=== PATIENT | male | born 1970 | race Caucasian/White ===

== ENCOUNTER 2022-04-12 16:34 | Emergency (ER) | payer SELFPAY ==
[2022-04-12] VITALS (97 sets, daily range): BP systolic 90–113; BP diastolic 58–73; PULSE 75–158; RESP 12–29; TEMP 36.2; O2SAT 99–100
--- NOTE | 2022-04-12 16:30 | RT.EKG_ITS ---
APPROVED REPORT Exam: Resting ECG Reason for Exam: elevated heart rate Patient Location: E HR:109 bpm ECG Measurements Heart Rate 109 AXIS CO 148 P 68 QRSd 79 QRS -23 QT 312 T 112 QTc 420 Conclusion Sinus tachycardia...rate> 99 Nonspecific repol abnormality, lateral leads...ST dep, T neg, I aVL V5 V6 sinus tachycardia, left axis, normal intervals, ST depressions and t wave inversions I aVL, V6, with st depressions in V4 V5 as wellwells
--- NOTE | 2022-04-12 17:00 | DI.CT_ITS ---
Exam(s) CT ABDOMEN PELVIS WO EXAM: CT ABDOMEN PELVIS WO CLINICAL HISTORY: coffee ground emesis and melena. TECHNIQUE: Imaging Protocol: Axial computed tomography images with coronal and sagittal reformatted images were created and reviewed. COMPARISON: No exams were available for comparison FINDINGS: ABDOMEN: Lung Bases: Normal where visualized. Liver: Normal density. No measurable mass. Gallbladder and biliary tract: No radiodense calculus or biliary ductal dilation. Pancreas: Normal density, no abnormal calcifications or inflammatory process. Spleen: Normal. Kidneys: Normal size, contour and axis.No radiodense stones or obstructive uropathy. No masses seen. Adrenal glands: No mass is seen. Lymph nodes: Within normal limits. Abdominal Aorta: Abdominal portion non-dilated. Atherosclerosis. PELVIS: Bladder:There is diffuse thickening of the wall of the urinary bladder. This may be due to underdist ention. Cystitis cannot be excluded. Bowel: No evidence of obstruction. The colon is not well distended limiting evaluation. No pericolo yesenia inflammatory changes are seen at this time. Appendix is unremarkable. Peritoneal cavity: No ascites, collection or mesenteric inflammatory response. No free air. Reproductive organs: Prostate gland is enlarged. Bones: Within normal limits. Soft Tissues: Within normal limits. IMPRESSION: 1. The colon is not well distended. The wall appears mildly thickened but this may be due to underdi stention. Colitis cannot be entirely excluded however, no pericolonic inflammatory changes are seen. 2. Thickening of the wall of the urinary bladder. The bladder is underdistention which may cause thi s appearance. Cystitis or chronic bladder outlet obstruction cannot be entirely excluded. Please co rrelate clinically. RADIATION DOSE DELIVERED: 735.62mGy.cm Total DLP DATA REPOSITORY: All CT scans at this facility are submitted to the National Radiology Data Registry (NRDR) Dose Index Registry (DIR) with the [employer] ([employer]). RADIATION OPTIMIZATION: All CT scans at this facility use at least one of these dose optimization te chniques: automated exposure control; mA and/or kV adjustment per patient size (includes targeted exa ms where dose is matched to clinical indication); or iterative reconstruction.
--- NOTE | 2022-04-12 17:14 | W.ED.GENAD ---
Discharge Plan Disposition Patient Disposition: [facility] Condition: Serious Discharge Details Chief Complaint: Nausea/Vomit/Diar Clinical Impression: Acute upper gastrointestinal bleeding, NERIS (acute kidney injury), Alcohol withdrawal Primary Care Provider: None,None ED Provider: Carlos Trujillo Home Meds and New Rx's Prescriptions: No Action No Known Home Meds Medical Decision Making 52-year-old male history of alcohol abuse, approximately 1 gallon of vodka per week increased his drinking recently, has been drinking heavily for 5 years, presents with nausea vomiting and diarrhea, dark emesis and dark stool, patient is tachycardic, appears dry and pale with conjunctival pallor, abdomen soft nontender nondistended no active vomiting currently however feels nauseous, last drink 2 days ago, high clinical suspicion for upper GI bleed must consider gastritis versus variceal bleed also likely component of alcohol withdrawal. Will proceed with fluid resuscitation, Protonix, octreotide, ceftriaxone empirically, Zofran, Ativan, basic labs type and screen stat bedside x-ray to assess for air under the diaphragm or mediastinal abnormalities however esophageal rupture or perforation less likely at this time, patient will likely need transfer for urgent GI evaluation with upper endoscopy; close reassessment of vital signs and mental status. Of note patient also has sinus tachycardia as well as T wave inversions and ST depressions concerning for lateral ischemia consider demand versus ACS 18: 36 patient resting more comfortably, heart rate has decreased to the 80s, color improving, no active vomiting however he did have 1 dark bowel movement at bedside, given high likelihood of upper GI bleed related to varices versus severe alcohol induced gastritis patient will benefit from admission to a center with interventional upper endoscopy capabilities. For this reason [facility] has been contacted to consult GI service for transfer. Continue with fluids benzos antiemetics. 20: 27 patient resting comfortably no emesis and no further melanotic stool at this time, symptoms of withdrawal greatly improved. Patient has been accepted to [facility] for MICU admission sifting physician Dr. Kenney. Patient to be evaluated by GI service at [facility].. Was able to contact patient's fianc? who called earlier her name is Ellie [phone] HPI General Date/Time Provider Initiated Documentation: 04/12/22 16:39. HPI Narrative: 52-year-old male history of alcohol abuse presents with dark emesis and dark black stool over the past day multiple episodes of vomiting and diarrhea, feels fatigued and dehydrated, endorses drinking approximately 1 gallon of vodka per week has increased his drinking over the past several days to weeks, has been drinking heavily for approximately 5 years, last drink was approximately 2 days ago. Related Data Home Medications Medication Instructions Recorded Confirmed Unknown [No Known Home Meds] 01/23/16 01/23/16 Allergies Allergy/AdvReac Type Severity Reaction Status Date / Time No Known Allergies Allergy Unverified 01/23/16 23:27 General Stated Complaint: Nausea/Vomit/Diar ALEXIS: 3 Review of Systems Narrative: Review of Systems Constitutional: Fatigue Eyes: negative ENT: negative Cardiovascular: Tachycardia Respiratory: negative Gastrointestinal: Nausea, vomiting, coffee-ground emesis, melena : negative Musculoskeletal: negative Skin: negative Neurologic: negative Psych: negative PFSH All Active Problems (Updated 04/12/22 @ 20:31 by Carlos Trujillo MD) Acute upper gastrointestinal bleeding (Acute) NERIS (acute kidney injury) (Acute) Alcohol withdrawal (Acute) Social History Smoking/Tobacco Use Status: Current every day Tobacco Type: cigarettes Smoking risk assessment performed?: Yes Alcohol Intake: current Alcohol Intake frequency: 3 or more drinks per day Alcohol type: hard liquor Drug use: Daily Substance use type: marijuana and painkillers Do you feel safe at home: Yes Do you feel safe in your relationship?: Yes Exam Narrative Exam Narrative: Physical Examination General: alert, awake, cooperative, appears moderately uncomfortable HEENT: normocephalic, atraumatic; PERRL, EOM intact, conjunctival pallor; no nasal discharge; dry oral mucosa Neck: supple, trachea midline; full ROM Chest: normal to inspection Respiratory: normal respiratory effort, speaking in full sentences, clear to auscultation, no wheezing, rales or rhonchi Cardiac: Tachycardia, regular rhythm, S1S2 intact, no murmurs rubs or gallops GI: abdomen soft, non-tender, non-distended; no palpable mass or hepatosplenomegaly Skin: Pallor, dry skin Neuro: AAOx3, normal speech, moving all extremities Psych: Appropriate mood and affect Course Vital Signs Vital signs: Vital Signs Temperature 36.2 C L 04/12/22 16:39 Pulse 158 H 04/12/22 16:39 Respiratory Rate 16 04/12/22 16:39 Blood Pressure 113/65 04/12/22 16:39 Pulse Oximetry 99 04/12/22 16:39 Temperature 36.2 C L 04/12/22 16:39 Pulse 158 H 04/12/22 16:39 Respiratory Rate 16 04/12/22 16:39 Respiratory Effort 04/12/22 16:48 Blood Pressure 113/65 04/12/22 16:39 Pulse Oximetry 99 04/12/22 16:39
[2022-04-12 17:26] LABS: Abs Immature Grans 0.32 10^3/uL (0.0-0.06); Absolute Basophil Count 0.07 10^3/uL (0.0-0.2); Absolute Monocyte Count 1.21 10^3/uL (0.1-0.8); Basophils % 0.3; HCT 46.6 % (40.0-50.0); HGB 16.8 g/dL (13.5-17.5); Immature Grans % 1.3; Lymphocytes % 12.4; MCHC 36.1 % (32.0-36.0); MCV 92 fL (80-95); MPV 11.9 fL (8.0-11.0); Platelet Count 252 10^3/uL (130-400); RBC 5.09 10^6/uL (4.36-5.78); RDW 12.6 % (11.8-14.1); RDW-SD 41.3 fL; WBC 24.28 10^3/uL (4.4-10.8)
[2022-04-12 17:29] LABS: Absolute Lymphocyte Count 3.01 10^3/uL (1.2-3.4); Absolute Neutrophil Count 19.67 10^3/uL (1.2-6.7)
[2022-04-12] MEDS: Octreotide 100 MCG/ML VIAL 50 MCG IVP (17:32)
[2022-04-12] MEDS: LORazepam 2 MG/ML VIAL 1 MG IVP (17:32)
[2022-04-12] MEDS: Normal Saline 1,000 ML 1000 ML IV (17:32)
[2022-04-12] MEDS: cefTRIAXone 1 GM/50 ML BAG IVPB (17:32)
[2022-04-12] MEDS: Ondansetron 4 MG/2 ML VIAL IVP (17:33)
[2022-04-12] MEDS: Pantoprazole 40 MG VIAL 80 MG IVP (17:33)
[2022-04-12 17:37] LABS: INR 1.1 (0.9-1.1); Prothrombin Time 10.6 sec (9.3-11.0)
[2022-04-12 17:40] LABS: ALT 36 U/L (16-63); AST 20 U/L (15-37); Albumin 4.2 g/dL (3.4-5.0); Alkaline Phosphatase 63 U/L (46-116); Anion Gap 18.3 mmol/L (3-11); BUN 62 mg/dL (7-18); CO2 23.7 mmol/L (21.0-32.0); CREATININE 2.2 mg/dL (0.70-1.30); Calcium 9.7 mg/dL (8.5-10.1); Chloride 104 mmol/L (98-107); ETHANOL BLOOD < 3.0 mg/dL (<10); Estimated GFR 31.71 (mL/min/1.73m2); Glucose 237 mg/dL (74-106); Lipase 66 U/L (73-393); Magnesium 1.7 mg/dL (1.8-2.4); Potassium 3.5 mmol/L (3.5-5.1); Sodium 146 mmol/L (136-145); Total Protein 7.8 g/dL (6.4-8.2); Troponin I < 50 ng/L (<or=60)
--- NOTE | 2022-04-12 18:03 | DI.RAD_ITS ---
Exam(s) XR CHEST 1V IN DI DEPT EXAM: XR CHEST 1V IN DI DEPT CLINICAL HISTORY: coffeeground emesis TECHNIQUE: 2D digital imaging was performed of the chest. One image was obtained. An AP view was ob tained. COMPARISON: No exams were available for comparison FINDINGS: MEDIASTINUM: Normal. HEART: Normal. PULMONARY VASCULATURE: Normal. LUNGS: Clear. PLEURAL SPACE: No pleural effusion or pneumothorax. BONE:Within normal limits for the patient's age. OTHER FINDINGS:Normal. IMPRESSION: No acute pulmonary findings. DATA REPOSITORY: RADIATION DOSE DELIVERED:
[2022-04-12] MEDS: OCTREOTIDE 250 MCG in Normal Saline 245 ML 50 MCG IV (18:12)
--- NOTE | 2022-04-12 18:22 | DI.VRAD_ITS ---
PROCEDURE INFORMATION: Exam: CT Abdomen And Pelvis Without Contrast Exam date and time: 04/12/2022 5:48 PM Age: 52 years old Clinical indication: Other: Coffee ground emesis and melena TECHNIQUE: Imaging protocol: Computed tomography of the abdomen and pelvis without contrast. Radiation optimization: All CT scans at this facility use at least one of these dose optimization techniques: automated exposure control; mA and/or kV adjustment per patient size (includes targeted exams where dose is matched to clinical indication); or iterative reconstruction. COMPARISON: CR XR CHEST 1V IN DI DEPT 04/12/2022 5:47 PM FINDINGS: Lungs: Lung bases clear. Liver: Grossly unremarkable unenhanced liver. Gallbladder and bile ducts: Gallbladder collapsed and not well evaluated but grossly unremarkable, as seen. No calcified gallstones seen. No biliary dilatation. Pancreas: Grossly unremarkable unenhanced pancreas. Spleen: Grossly unremarkable unenhanced spleen. Adrenal glands: Normal appearing adrenal glands. Kidneys and ureters: Grossly unremarkable unenhanced kidneys. No radiopaque urinary tract stones, hydronephrosis, or evidence of recent stone passage. Stomach and bowel: No oral contrast. Stomach partially distended with fluid and gas. No small bowel dilatation to suggest obstruction. Colon almost completely evacuated of fecal material and collapsed. Apparent mural thickening through the collapsed ascending, transverse, descending, and sigmoid colon. Artifact of incomplete distention? Extensive colitis? No pericolic fat stranding. No evidence of diverticulitis. Rectum largely well evacuated and collapsed. Appendix: Normal appendix, partially obscured. Intraperitoneal space: No gross ascites or free air. Vasculature: Normal caliber abdominal aorta. Lymph nodes: No pathologically enlarged mesenteric, retroperitoneal, or pelvic sidewall lymph nodes. Urinary bladder: Urinary bladder partially decompressed but circumferentially thick-walled. Reproductive: Mildly enlarged prostate gland, 3.6 cm x 4.6 cm maximum axial dimension. Normal-appearing seminal vesicles. Bones/joints: No acute fracture seen among the bones of the abdomen or pelvis. Small anterior vertebral osteophytes at several levels. Six lumbar type vertebral bodies with a transitional L6 vertebral body which is hemisacralized on the right. Soft tissues: No significant ventral or inguinal hernia. IMPRESSION: 1. Colon almost completely evacuated of fecal material and collapsed. Apparent mural thickening through most of the collapsed colon. Artifact of incomplete distention or extensive colitis could have this appearance. Clinical correlation is recommended. Otherwise, no acute bowel pathology is demonstrated. 2. Urinary bladder partially decompressed. Circumferential bladder wall thickening, nonspecific. Artifact of incomplete distention, acute cystitis, or chronic outflow obstruction could produce this appearance. Dictated and Authenticated by: Matty Allen MD. Ordering:JEROME Gonzalez MD
[2022-04-12] MEDS: LORazepam 2 MG/ML VIAL IVP (18:23)
--- NOTE | 2022-04-12 18:25 | DI.VRAD_ITS ---
PROCEDURE INFORMATION: Exam: XR Chest Exam date and time: 04/12/2022 5:47 PM Age: 52 years old Clinical indication: Other: Coffee ground emesis TECHNIQUE: Imaging protocol: XR of the chest. Views: 1 view. COMPARISON: No relevant prior studies available. FINDINGS: Limitations: There is lordotic patient positioning. Lungs: No pulmonary consolidation is seen. Pleural spaces: No pleural effusion or pneumothorax is demonstrated. Heart/Mediastinum: Heart size is normal. Bones/joints: The bony structures appear grossly intact, as seen. IMPRESSION: No active disease is seen in the chest. Dictated and Authenticated by: Matty Allen MD. Ordering:JEROME Gonzalez MD
[2022-04-12 19:30] LABS: HCT 36.3 % (40.0-50.0); MCH 32.7 pg (27.0-33.0); MCHC 35.5 % (32.0-36.0); MCV 92 fL (80-95); MPV 11.6 fL (8.0-11.0); Platelet Count 149 10^3/uL (130-400); RBC 3.95 10^6/uL (4.36-5.78); RDW 12.6 % (11.8-14.1)
[2022-04-12 19:32] LABS: HGB 12.9 g/dL (13.5-17.5)
[2022-04-12 20:50] LABS: Troponin I 143 ng/L (<or=60)
== END 2022-04-12 23:25 | disposition short-term general hospital (02) ==
PROVIDERS: Emergency Provider Emergency Medicine
DX: K92.2 Gastrointestinal hemorrhage, unspecified (principal); N17.9 Acute kidney failure, unspecified; F10.239 Alcohol dependence with withdrawal, unspecified; K92.0 Hematemesis
CPT/HCPCS: 36415; 80053; 83690; 85027; 86850; 86900; 86901; 93005; 96361; 96365; 96366; 96367; 96375; 96376; 99285; 71045; 74176; 80320; 83735; 84484; 85025; 85610; 85730; 93010; J0696; J2060; J2354; J2405